=== PATIENT | male | born 1960 | race Asian ===

== ENCOUNTER 2020-01-04 08:45 | Emergency (ER) | payer OTHER ==
[~2020-01-04] VITALS: Ht 170.2 cm; Wt 120.2 kg
[2020-01-04 08:59] VITALS: TEMP 98.4
[2020-01-04 11:51] VITALS: BP 171/100
== END 2020-01-04 11:52 | disposition home or self-care (01) ==
LOC: ED 08:45
DX: S16.1XXD Strain of muscle, fascia and tendon at neck level, subsequent encounter (principal); V43.52XD Car driver injured in collision with other type car in traffic accident, subsequent encounter; S39.012D Strain of muscle, fascia and tendon of lower back, subsequent encounter; I10 Essential (primary) hypertension
CPT/HCPCS: 99283

== ENCOUNTER 2020-04-15 12:24 | Emergency (ER) | payer OTHER, BC ==
[~2020-04-15] VITALS: Ht 170.2 cm; Wt 120.2 kg
[2020-04-15 13:36] VITALS: BP 140/85; TEMP 98.8
== END 2020-04-15 13:36 | disposition home or self-care (01) ==
LOC: ED 12:24
DX: S16.1XXA Strain of muscle, fascia and tendon at neck level, initial encounter (principal); S39.012A Strain of muscle, fascia and tendon of lower back, initial encounter; X50.0XXA Overexertion from strenuous movement or load, initial encounter; Y93.B9 Activity, other involving muscle strengthening exercises; Y92.89 Other specified places as the place of occurrence of the external cause
CPT/HCPCS: 96372; 99282; J1885

== ENCOUNTER 2020-05-04 13:40 | Emergency (ER) | payer OTHER, BC ==
[~2020-05-04] VITALS: Ht 170.2 cm; Wt 120.2 kg
[2020-05-04 15:00] VITALS: BP 136/74; TEMP 99.1
== END 2020-05-04 15:00 | disposition home or self-care (01) ==
LOC: ED 13:40
DX: S39.012A Strain of muscle, fascia and tendon of lower back, initial encounter (principal)
CPT/HCPCS: 96372; 99282; J1885

== ENCOUNTER 2020-10-04 10:58 | Outpatient (CLI) | payer BC | END 2020-10-04 19:48 | disposition home or self-care (01) | LOC: RAD 10:58 | PROVIDERS: ATTEND Nurse Practitioner Family | DX: M24.60 Ankylosis, unspecified joint (principal) ==

== ENCOUNTER 2020-11-29 11:00 | Emergency (ER) | payer OTHER ==
[~2020-11-29] VITALS: Ht 170.2 cm; Wt 120.2 kg
[2020-11-29] MEDS ORDERED: COZAAR100 MG PO (11:22)
[2020-11-29] MEDS ORDERED: BENICAR5 MG PO (11:22)
[2020-11-29] MEDS ORDERED: CLONIDINE0.3 MG PO (11:22)
[2020-11-29] MEDS ORDERED: LEVO0.0723 PO (11:23)
[2020-11-29] MEDS ORDERED: SPIR50TA8 PO (11:23)
[2020-11-29 11:38] LABS: PLATELET COUNT 350 K/uL (142-355)
[2020-11-29 11:48] LABS: SODIUM 139 mmol/L (136-145)
[2020-11-29 11:56] LABS: PARTIAL THROMBOPLASTIN TIME 24.8 SECONDS (24.5-33.6)
[2020-11-29 13:00] VITALS: BP 209/94; TEMP 97.6
== END 2020-11-29 13:00 | disposition home or self-care (01) ==
LOC: ED 11:00
PROVIDERS: Hospitalist
DX: I10 Essential (primary) hypertension (principal)
CPT/HCPCS: 80053; 82550; 83880; 84484; 85027; 85610; 85730; 93005; 96374; 96375; 99284; J0360; J2405

== ENCOUNTER 2020-12-06 10:55 | Emergency (ER) | payer OTHER ==
[~2020-12-06] VITALS: Ht 170.2 cm; Wt 111.1 kg
[2020-12-06 10:55] VITALS: TEMP 97.6
[~2020-12-06 10:55] MED LIST: BENICAR5 MG PO; CLONIDINE0.3 MG PO; COZAAR100 MG PO; LEVO0.0723 PO; SPIR50TA8 PO
[2020-12-06 11:53] LABS: PLATELET COUNT 383 K/uL (142-355)
[2020-12-06 12:04] LABS: POTASSIUM 3.7 mmol/L (3.6-5.2); SODIUM 140 mmol/L (136-145)
[2020-12-06 12:24] LABS: PARTIAL THROMBOPLASTIN TIME 25.6 SECONDS (24.5-33.6)
[2020-12-06 13:00] VITALS: BP 164/78
== END 2020-12-06 13:00 | disposition home or self-care (01) ==
LOC: ED 11:23
PROVIDERS: Hospitalist
DX: I10 Essential (primary) hypertension (principal); G44.209 Tension-type headache, unspecified, not intractable
CPT/HCPCS: 36415; 80053; 82550; 83880; 84484; 85027; 85610; 85730; 93005; 96374; 96375; 99284; J0360; J1885; J2405

== ENCOUNTER 2021-08-22 09:31 | Outpatient (CLI) | payer OTHER | END 2021-08-22 19:02 | disposition home or self-care (01) | LOC: RAD 09:31 | PROVIDERS: ATTEND Internal Medicine | DX: M54.5 Low back pain (principal); I10 Essential (primary) hypertension; F32.9 Major depressive disorder, single episode, unspecified ==

== ENCOUNTER 2023-06-02 11:51 | Outpatient (CLI) | payer OTHER | END 2023-06-02 20:48 | disposition home or self-care (01) | LOC: RAD 11:51 | PROVIDERS: ATTEND Nurse Practitioner Family | DX: M25.512 Pain in left shoulder (principal) ==

== ENCOUNTER 2023-07-02 09:04 | Outpatient (CLI) | payer OTHER | END 2023-07-02 19:04 | disposition home or self-care (01) | LOC: US 09:04 | PROVIDERS: ATTEND Nurse Practitioner Family | DX: M21.212 Flexion deformity, left shoulder (principal); M25.512 Pain in left shoulder; I10 Essential (primary) hypertension; N19 Unspecified kidney failure ==